=== PATIENT | female | born 1985 | race Caucasian/White ===

== ENCOUNTER → 2021-03-01 | Day surgery (SDC) | payer OTHER ==
[2021-02-24 10:50] VITALS: BMI 31.1
[~2021-03-01] MED LIST: BENZOIN/ALOE VERA/STORAX/TOLU 58 ML BOTTLE ONE; BUPIVACAINE HCL/PF 0.25% (2.5MG/ML) 10 ML VIAL ONE; LACTATED RINGERS SOLUTION 1,000 ML IV SCH; LIDOCAINE HCL 2% (20ML MULTI-DOSE VIAL) ONE; ONDANSETRON 4 MG/2 ML VIAL IVPUSH PRN; PROPOFOL 20 ML ONE
[2021-03-01 11:22] VITALS: BP 104/52; PULSE 88; TEMP 98
== END | disposition home or self-care (01) ==
LOC: JASU-SURG 05:32
PROVIDERS: ATTEND Orthopaedic Surgery Hand Surgery
PROC: 0MQ80ZZ Repair Left Hand Bursa and Ligament, Open Approach (ICD-10-PCS; principal; 2021-03-01 08:05)
DX: S63.642A Sprain of metacarpophalangeal joint of left thumb, initial encounter (principal); X58.XXXA Exposure to other specified factors, initial encounter; Y93.9 Activity, unspecified; Y92.9 Unspecified place or not applicable; Y99.9 Unspecified external cause status; Z33.1 Pregnant state, incidental
CPT/HCPCS: 94760